=== PATIENT | female | born 1995 | race Caucasian/White ===

== ENCOUNTER 2017-02-04 15:33 | Emergency (ER) | payer BC ==
[~2017-02-04] VITALS: Ht 165.1 cm; Wt 54.5 kg
[2017-02-04 15:39] VITALS: TEMP 36.5; Ht 165.1 cm; Wt 54.5 kg
[2017-02-04] MEDS ORDERED: SODIUM CHLORIDE 0.9% 1000ML 1,000 ML IV STA (16:06)
[2017-02-04] MEDS ORDERED: SODIUM CHLORIDE 0.9% 1000ML 2,000 ML IV STA (16:06)
[2017-02-04] MEDS ORDERED: OPTIRAY 320 IV PRN (16:15)
[2017-02-04 16:51] LABS: BASO % 0.3 %; BASO ABS # 0.02 K/uL (0-0.2); COMPLETE YES; EOS % 0.5 %; HEMATOCRIT 42.5 % (37-47); IG% 0.2 %; LYMPH % 21.4 %; LYMPH ABS # 1.23 K/uL (1.2-3.4); MEAN CELL VOLUME 85.3 fL (80-100); MEAN CORPUSCULAR HEMOGLOBIN 30.5 pg (25-34); MEAN CORPUSCULAR HGB CONC 35.8 g/dl (32-36); MONO % 13.5 %; NEUT % 64.1 %; PLATELET COUNT 216 K/uL (130-400); RED BLOOD COUNT 4.98 M/uL (4.2-5.4); WHITE BLOOD COUNT 5.76 K/uL (4.8-10.8)
[2017-02-04 17:05] LABS: URINE APPEARANCE CLEAR (CLEAR); URINE BILIRUBIN NEG (NEG); URINE COLOR YELLOW; URINE NITRITE NEG (NEG); URINE PH 6.5 (4.5-7.5); URINE SPECIFIC GRAVITY 1.012 (1.000-1.030); UROBILINOGEN NEG (NEG)
[2017-02-04 17:20] LABS: MANUAL MICROSCOPIC REQUIRED? NO; REVIEW REQ? YES
[2017-02-04 17:38] LABS: BUN/CREATININE RATIO 13.3 (10-20); CREATININE 0.7 mg/dl (0.60-1.20); POTASSIUM 3.6 mmol/L (3.5-5.1)
--- NOTE | 2017-02-04 17:53 | DIAGNOSTIC IMAGING REPORT ---
APPENDIX ULTRASOUND HISTORY: Right lower quadrant pain. Evaluate for acute appendicitis. COMPARISON: None. FINDINGS: The appendix was not visualized by sonography. No free fluid was identified within the right lower quadrant. IMPRESSION: Nonvisualization of the appendix. If persistent clinical suspicion for acute appendicitis, a CT is recommended. Electronically signed by: Finn Doyle M.D. 02/04/2017 5:51 PM Dictated Date/Time: 02/04/2017 5:51 PM
--- NOTE | 2017-02-04 17:53 | DIAGNOSTIC IMAGING REPORT ---
PELVIC COMPLETE NON OB CLINICAL HISTORY: EVAL LOWER ABD PAIN COMPARISON STUDY: FINDINGS: The uterus measured 7.2 cm. Retroflexed configuration.. The endometrial stripe measured 4 mm. The right ovary measured 3.8 cm maximum dimension with normal vascular flow. The left ovary measured 3.3 cm with normal vascular flow. There is no ultrasonographic evidence of ovarian torsion. It should be noted that ovarian torsion can be present with normal Doppler ultrasonographic findings. Trace free fluid within the pelvic cul-de-sac IMPRESSION: Negative pelvic ultrasound The above report was generated using voice recognition software. It may contain grammatical, syntax or spelling errors. Electronically signed by: Cesario Quevedo M.D. 02/04/2017 5:52 PM Dictated Date/Time: 02/04/2017 5:50 PM
--- NOTE | 2017-02-04 19:23 | DIAGNOSTIC IMAGING REPORT ---
ABD/PELVIS IV AND ORAL CONT CT DOSE: 270.24 mGy.cm HISTORY: Pain LOWER ABD PAIN X 3 DAYS TECHNIQUE: Multiaxial CT images of the abdomen and pelvis were performed following the use of intravenous and oral contrast. A dose lowering technique was utilized adhering to the principles of ALARA. COMPARISON STUDY: None. FINDINGS: The lung bases are clear. The liver, spleen, gallbladder, pancreas, kidneys, and adrenal glands are within normal limits. No bowel wall thickening or obstruction. The pelvic organs are unremarkable. No suspicious lytic or blastic osseous lesions. IMPRESSION: No significant abnormality identified within the abdomen or pelvis. Normal appendix. Nonobstructive bowel pattern. The above report was generated using voice recognition software. It may contain grammatical, syntax or spelling errors. Electronically signed by: Cesario Quevedo M.D. 02/04/2017 7:21 PM Dictated Date/Time: 02/04/2017 7:19 PM
--- NOTE | 2017-02-04 19:51 | EMERGENCY ROOM VISIT NOTE ---
History First contact with patient: 15:42 Chief Complaint: ABDOMINAL PAIN Stated Complaint: FEVER, MIGRAINE, ABDOMEN PAIN, CONSTIPATION Nursing Triage Summary: Pt states abd pain started 3 days ago, worse last night pain is a 5 out of 10. states she was constipated earlier today ,then had diarrhea. abd flat, positive BS History of Present Illness Patient is a 21-year-old white female who presents the emergency department for evaluation of lower abdominal pain 3 days. Patient states that her symptoms started Thursday evening. She felt well during the day, had dinner, and then noted lower abdominal discomfort that evening. She states that it was from her belly button down in the bilateral lower abdomen. She initially reports that she felt constipated, and tried to increase her water intake. She also had an associated low-grade fever, temperature maximum 100F orally from the onset of her pain through our around 12:00 noon today. She also developed a headache at the same time as she developed the abdominal pain. She has had a problem with headaches/migraines since a concussion about 3 years ago. She states this is typical of her usual headache phenomenon. Patient reports this morning she developed diarrhea, she reports 3 loose stools stools. She reported slight relief of her lower abdominal discomfort with the bowel movements. She describes it as feeling like "bad period cramps." She finished her menses last week, she is not on oral contraceptives. She is not sexually active and never has been. She's never had a gynecologic exam. She denies any urinary symptoms or vaginal discharge. She did not try taking any medications for her fever or her abdominal pain because she thought they would upset her stomach. She tried eating light foods including soup, cereal and yogurt. She did note increased discomfort with eating. She went to [facility] today and they referred her to the emergency department for further care and evaluation including appendicitis and gynecologic pathology. Review of Systems Review of systems as per HPI. All other systems reviewed were negative. 10 systems reviewed. Past Medical/Surgical History Medical Problems: (1) Asthma (2) Concussion The patient has no old records at our facility for review. Supplemental sheet was filled out and was reviewed. Social History Smoking Status: Never Smoker Alcohol Use: none Housing Status: lives with roommate Occupation Status: [employer] student Current/Historical Medications No Active Prescriptions or Reported Meds Physical Exam Vital Signs Date Time Temp Pulse Resp B/P (MAP) Pulse Ox O2 Delivery O2 Flow Rate FiO2 02/04/17 20:00 103 18 110/72 99 02/04/17 18:25 115 18 111/75 95 Room Air 02/04/17 15:39 36.5 120 20 116/84 97 Room Air Pain Rating (0-10): 5.0 Physical Exam CONSTITUTIONAL: Patient is a well-appearing 21-year-old white female who is awake and alert and in no acute distress. EYES: Pupils equal, round, reactive to light and accommodation. EOMs intact without nystagmus. Sclera are anicteric. ENT: Tympanic membranes intact, with normal landmarks. External canals are clear. Oral and nasopharynx are clear. Mucous membranes are moist, no lesions , tongue and gums appear normal. NECK: No bruits auscultated. Supple without lymphadenopathy. No thyromegaly. No meningeal signs. Full active range of motion without discomfort. CARDIOVASCULAR: Regular rate and rhythm, with normal S1 and S2, no murmur or gallop or rub is heard. No carotid bruits auscultated. No JVD. Peripheral pulses easily palpable. RESPIRATORY: Breath sounds equal and clear to auscultation without wheezes, rales, or rhonchi heard. Full and equal chest expansion without accessory muscle use or retractions. ABDOMEN: Bowel sounds are present. Abdomen is soft, scaphoid, nondistended, nontender to percussion throughout. She has slight bilateral lower abdominal tenderness to palpation, no guarding or rebound. Specifically, there is no pain in the right lower quadrant over McBurney's point. No CVA tenderness. INTEGUMENTARY: No lesions or rash, normal skin turgor. LYMPH: No lymphadenopathy. Medical Decision & Procedures ER Provider Diagnostic Interpretation: PELVIC COMPLETE NON OB CLINICAL HISTORY: EVAL LOWER ABD PAIN COMPARISON STUDY: FINDINGS: The uterus measured 7.2 cm. Retroflexed configuration.. The endometrial stripe measured 4 mm. The right ovary measured 3.8 cm maximum dimension with normal vascular flow. The left ovary measured 3.3 cm with normal vascular flow. There is no ultrasonographic evidence of ovarian torsion. It should be noted that ovarian torsion can be present with normal Doppler ultrasonographic findings. Trace free fluid within the pelvic cul-de-sac IMPRESSION: Negative pelvic ultrasound APPENDIX ULTRASOUND HISTORY: Right lower quadrant pain. Evaluate for acute appendicitis. COMPARISON: None. FINDINGS: The appendix was not visualized by sonography. No free fluid was identified within the right lower quadrant. IMPRESSION: Nonvisualization of the appendix. If persistent clinical suspicion for acute appendicitis, a CT is recommended. ABD/PELVIS IV AND ORAL CONT CT DOSE: 270.24 mGy.cm HISTORY: Pain LOWER ABD PAIN X 3 DAYS TECHNIQUE: Multiaxial CT images of the abdomen and pelvis were performed following the use of intravenous and oral contrast. A dose lowering technique was utilized adhering to the principles of ALARA. COMPARISON STUDY: None. FINDINGS: The lung bases are clear. The liver, spleen, gallbladder, pancreas, kidneys, and adrenal glands are within normal limits. No bowel wall thickening or obstruction. The pelvic organs are unremarkable. No suspicious lytic or blastic osseous lesions. IMPRESSION: No significant abnormality identified within the abdomen or pelvis. Normal appendix. Nonobstructive bowel pattern. Laboratory Results 02/04/17 16:25 Red Blood Count 4.98, Mean Corpuscular Volume 85.3, Mean Corpuscular Hemoglobin 30.5, Mean Corpuscular Hemoglobin Concent 35.8, Mean Platelet Volume 10.0, Neutrophils (%) (Auto) 64.1, Lymphocytes (%) (Auto) 21.4, Monocytes (%) (Auto) 13.5, Eosinophils (%) (Auto) 0.5, Basophils (%) (Auto) 0.3, Neutrophils # (Auto ) 3.69, Lymphocytes # (Auto) 1.23, Monocytes # (Auto) 0.78, Eosinophils # (Auto ) 0.03, Basophils # (Auto) 0.02 02/04/17 16:25 Test 02/04/17 15:57 02/04/17 16:25 Urine Color YELLOW Urine Appearance CLEAR (CLEAR) Urine pH 6.5 (4.5-7.5) Urine Specific [place] 1.012 (1.000-1.030) Urine Protein NEG (NEG) Urine Glucose (UA) NEG (NEG) Urine Ketones 1+ (NEG) Urine Occult Blood 2+ (NEG) Urine Nitrite NEG (NEG) Urine Bilirubin NEG (NEG) Urine Urobilinogen NEG (NEG) Urine Leukocyte Esterase NEG (NEG) Urine WBC (Auto) 0 /hpf (0-5) Urine RBC (Auto) 0-4 /hpf (0-4) Urine Hyaline Casts (Auto) 0 /lpf (0-5) Urine Epithelial Cells (Auto) 10-20 /lpf (0-5) Urine Bacteria (Auto) NEG (NEG) Urine Test NEG (NEG) White Blood Count 5.76 K/uL (4.8-10.8) Red Blood Count 4.98 M/uL (4.2-5.4) Hemoglobin 15.2 g/dL (12.0-16.0) Hematocrit 42.5 % (37-47) Mean Corpuscular Volume 85.3 fL (80-100) Mean Corpuscular Hemoglobin 30.5 pg (25-34) Mean Corpuscular Hemoglobin Concent 35.8 g/dl (32-36) Platelet Count 216 K/uL (130-400) Mean Platelet Volume 10.0 fL (7.4-10.4) Neutrophils (%) (Auto) 64.1 % Lymphocytes (%) (Auto) 21.4 % Monocytes (%) (Auto) 13.5 % Eosinophils (%) (Auto) 0.5 % Basophils (%) (Auto) 0.3 % Neutrophils # (Auto) 3.69 K/uL (1.4-6.5) Lymphocytes # (Auto) 1.23 K/uL (1.2-3.4) Monocytes # (Auto) 0.78 K/uL (0.11-0.59) Eosinophils # (Auto) 0.03 K/uL (0-0.5) Basophils # (Auto) 0.02 K/uL (0-0.2) RDW Standard Deviation 36.8 fL (36.4-46.3) RDW Coefficient of Variation 11.9 % (11.5-14.5) Immature Granulocyte % (Auto) 0.2 % Immature Granulocyte # (Auto) 0.01 K/uL (0.00-0.02) Anion Gap 8.0 mmol/L (3-11) Est Creatinine Clear Calc Drug Dose 111.2 ml/min Estimated GFR () 145.6 Estimated GFR (Non- 125.6 BUN/Creatinine Ratio 13.3 (10-20) Calcium Level 10.0 mg/dl (8.5-10.1) Total Bilirubin 0.5 mg/dl (0.2-1) Aspartate Amino Transf (AST/SGOT) 17 U/L (15-37) Alanine Aminotransferase (ALT/SGPT) 17 U/L (12-78) Alkaline Phosphatase 83 U/L (45-117) Total Protein 8.9 gm/dl (6.4-8.2) Albumin 4.4 gm/dl (3.4-5.0) Globulin 4.5 gm/dl (2.5-4.0) Albumin/Globulin Ratio 1.0 (0.9-2) Medications Administered Medications (Trade) Dose Ordered Sig/Marianne Route Start Time Stop Time Status Last Admin Dose Admin Sodium Chloride 2,000 ml @ 999 mls/hr Q2H1M STAT IV 02/04/17 16:06 02/04/17 18:06 DC 02/04/17 16:06 999 MLS/HR Sodium Chloride 1,000 ml @ 200 mls/hr Q5H STAT IV 02/04/17 16:06 02/04/17 20:10 DC 02/04/17 18:24 200 MLS/HR ED Course The patient was seen and evaluated as above. IV lock was initiated and she was hydrated with normal saline solution. She declined pain and nausea medications while in the emergency department. CBC with differential, CMP, urinalysis and urine test were obtained. Laboratory studies demonstrated a normal white count, no left shift or bandemia. H&H is normal. Electrolytes, renal functions and liver functions are all within normal limits. Urinalysis notes 1+ ketones, 2+ occult blood, no RBCs, no nitrates no white blood cells or leukocyte esterase. test was negative. Pelvic and right lower quadrant ultrasound was performed to evaluate for gynecologic pathology and appendicitis. Right lower quadrant ultrasound did not visualize the appendix. Pelvic ultrasound did not demonstrate any gynecologic abnormality. CT scan of the abdomen and pelvis with IV and oral contrast was interpreted as normal per the radiologist. All laboratory and diagnostic imaging studies were reviewed with the patient thoroughly. Differential diagnoses entertained included UTI, pyelonephritis, renal colic, , ectopic , PID, ovarian cyst, ovarian torsion, tubo-ovarian abscess, appendicitis, irritable bowel syndrome, mesenteric adenitis, inflammatory bowel disease, bowel section, perforation, among others. Conservative care measures were discussed. Patient was encouraged to follow a clear liquid diet, advance as tolerated, and use [id number] medications as needed for her symptoms. She was encouraged to follow-up with [facility] if her symptoms are not improving, return to the ED for worsening symptoms. Patient was discharged home in stable condition with a friend. She rated her abdominal discomfort a 0/10 at discharge. Medical Decision See Emergency Department course. Medication Reconcilliation Current Medication List: was personally reviewed by me Blood Pressure Screening Patient's blood pressure: Normal blood pressure Blood pressure disposition: Did not require urgent referral Impression Primary Impression: Bilateral lower abdominal pain Departure Information Prescriptions No Active Prescriptions or Reported Meds Referrals No Doctor, Assigned (PCP) Patient Instructions [facility] Additional Instructions Ibuprofen(Motrin, Advil) may be used for fever or pain. Use 600mg every six hours as needed. Take with food. Avoid using more than 2400mg in a 24 hour period. Do not use 2400mg per day for more than three consecutive days without physician direction. Prolonged inappropriate use can lead to stomach upset or ulcers. This is available over the counter and typically comes in 200mg tablets. (AND/OR) Acetaminophen(Tylenol) may be used for fever or pain. Use 1000mg every eight hours as needed. Avoid using more than 3000mg in a 24 hour period. This is available over the counter. Read all the package inserts or medication information paperwork provided. If you have any questions or concerns call your primary provider, pharmacist or the ER for assistance. Rest and drink plenty of fluids as tolerated. Slow sips of water or sports drinks are recommended instead of large amounts all at once. Continue current medications. Once your stomach is settled start with a clear liquid diet (jello, soup broth, etc.) and then advance as tolerated. You should avoid full, heavy meals for about 24 hrs from the time your symptoms resolved. Return to the ER immediately for worsening or persistent abdominal pain, vomiting, fevers, chest pains, difficulty breathing, black or bloody stools, worsening of your condition, or as needed. Follow up with your primary physician in 1-2 days for a recheck of your current condition.
[2017-02-04 20:00] VITALS: BP 110/72; PULSE 103; O2SAT 99
== END 2017-02-04 20:01 | disposition home or self-care (01) ==
LOC: C.EDB 15:35 → C.EDA 20:01
DX: R10.32 Left lower quadrant pain (principal); R10.31 Right lower quadrant pain; R51 Headache; R19.7 Diarrhea, unspecified; J45.909 Unspecified asthma, uncomplicated